=== PATIENT | male | born 1990 | race Caucasian/White ===

== ENCOUNTER 2021-05-31 10:53 | Emergency (ER) | payer OTHER, SELFPAY ==
[2021-05-31 10:55] VITALS: BP 119/79; PULSE 71; RESP 21; TEMP 37; O2SAT 98; BMI 21.9
--- NOTE | 2021-05-31 10:58 | XR_ITS ---
PROCEDURE: XR HAND LT MIN 3V CLINICAL INDICATION: thumb injury COMPARISON: No exams were available for comparison FINDINGS: There is an ill-defined lucency transverse in nature at the proximal aspect of the distal phalanx of the thumb. This could be related to a nondisplaced fracture however is not visualized on the remaining images. Does the patient have a laceration at this area? Osteoarthritic changes are present at the scapho trapezium joint Other findings:None. IMPRESSION: Possible nondisplaced fracture proximal aspect of the distal phalanx of the thumb. Please correlate as the patient's area of pain and tenderness. Follow-up exam in 7-10 days may provide further evaluation. Dictated by: Humble Powell MD 05/31/2021 11:16 Humble Powell MD in [place] 05/31/2021 11:16
--- NOTE | 2021-05-31 11:22 | HMH.EDUTC ---
[facility] [place] Impression: Fracture of thumb, left, closed Qualifiers: Encounter type: initial encounter Phalanx: distal Fracture alignment: nondisplaced Qualified Code(s): S62.525A - Nondisplaced fracture of distal phalanx of left thumb, initial encounter for closed fracture Disposition: Home, Self-Care Condition on Discharge: Good Instructions: Finger Fracture, DI for Finger Fracture Additional Instructions: Rest the extremity, apply ice for 15 minutes as tolerated three or four times per day, Elevate the extremity as tolerated while you are resting. Wear the splint. If your thumb swells and it gets too tight then please unwrap the top layer (jefferson wrap) and wrap it back looser. RETURN HERE [facility] IF YOU HAVE ANY ISSUES OR PROBLEMS WITH THE SPLINT OR SWELLING. Try to prevent as much swelling as you can by keeping your hand elevated and applying the ice as directed. Take ibuprofen for pain. I sent in a prescription to your pharmacy. Follow up with Dr. Rangel (orthopedics). I put in a referral and called his office. They are going to call you this afternoon, but if you haven't heard from them by 4:00 pm please call them. Their phone number is . Follow up with your regular doctor. GO TO THE ER FOR ANY WORSENING SYMPTOMS Prescriptions: Ibuprofen [Ibuprofen 800mg Tablet] 800 mg PO Q8HP PRN #30 tab PRN Reason: Moderate Pain Transmission Status: Received by [id number] Referrals: Ollie Mata MD [Primary Care Provider] - Christiano Rangel MD [Staff Physician] - Forms: Work/School Release Time of Disposition: 11:35 Medical Decision Making - Medical Records Medical records reviewed: No: I reviewed the patient's medical records. - Drake Inquiry Pt receiving controlled substance: No Vital Signs: 05/31/21 10:55 05/31/21 11:41 Temperature 98.6 F 98.6 F Temperature Source Oral Pulse Rate 71 Pulse Rate [Right Brachial] 71 Respiratory Rate 21 21 Blood Pressure 119/79 Blood Pressure [Right Arm] 119/79 Blood Pressure Mean [Right Arm] 92 Blood Pressure Source [Right Arm] Automatic Cuff Blood Pressure Position [Right Arm] Sitting 02 Sat by Pulse Oximetry 98 Oxygen Delivery Method Room Air Orders (Tests/Meds): ED MEDICATIONS Discontinued Medications Generic Name Dose Route Start Last Admin Trade Name Elpidio PRN Reason Stop Dose Admin Ibuprofen 800 mg 05/31/21 11:32 05/31/21 11:34 Ibuprofen 400 Mg Tablet PO 05/31/21 11:33 800 mg ONCE ONE Administration - Radiology Data #1 Image(s): Hand Image Reviewed: Yes I reviewed the patient's radiology image, Yes I have reviewed radiologist's interpretation Preliminary Findings: Abnormal PROCEDURE: XR HAND LT MIN 3V CLINICAL INDICATION: thumb injury COMPARISON: No exams were available for comparison FINDINGS: There is an ill-defined lucency transverse in nature at the proximal aspect of the distal phalanx of the thumb. This could be related to a nondisplaced fracture however is not visualized on the remaining images. Does the patient have a laceration at this area? Osteoarthritic changes are present at the scapho trapezium joint Other findings:None. IMPRESSION: Possible nondisplaced fracture proximal aspect of the distal phalanx of the thumb. Please correlate as the patient's area of pain and tenderness. Follow-up exam in 7-10 days may provide further evaluation. Dictated by: Humble Powell MD 05/31/2021 11:16 Humble Powell MD in [place] 05/31/2021 11:16 [facility] [place] - General Stated complaint: poss broken left thumb Time Seen by Provider: 05/31/21 11:25 Mode of Arrival: Ambulatory Source of Information: Patient Limitations: No Limitations Description of Symptoms (Recalled from Triage Doc. by RN): PATIENT REPORTS HE JAMMED HIS LEFT THUMB PLAYING BASKETBALL LAST NIGHT HEENT Symptoms (Recalled from RN notes): No Resp Symptoms (Recalled from RN notes): No Skin Symp
[2021-05-31 11:41] VITALS: BP 119/79; PULSE 71; RESP 21; TEMP 37; O2SAT 98
== END 2021-05-31 11:44 | disposition home or self-care (01) ==
PROVIDERS: Emergency Provider Nurse Practitioner Family; PCP Emergency Medicine
DX: S62.525A Nondisplaced fracture of distal phalanx of left thumb, initial encounter for closed fracture (principal); W22.8XXA Striking against or struck by other objects, initial encounter; Y93.67 Activity, basketball; Y92.89 Other specified places as the place of occurrence of the external cause; F41.8 Other specified anxiety disorders; Z88.0 Allergy status to penicillin
CPT/HCPCS: 73130; 99202; G0463

== ENCOUNTER → 2021-06-11 13:33 | Outpatient (CLI) | payer OTHER, SELFPAY ==
--- NOTE | 2021-06-11 13:38 | XR_ITS ---
PROCEDURE: XR FINGER LT MIN 2V CLINICAL INDICATION: LT thumb fx COMPARISON: CR XR HAND LT MIN 3V from 05/31/2021 FINDINGS: The presence of the thumb brace limits evaluation. There is minor lucency noted at the distal phalanx on the oblique view, demonstrates minor calculus formation. Bone density is normal. IMPRESSION: Healing fracture of the base of the distal phalanx of the 1st digit. Evaluation limited due to the presence of brace. Dictated by: Meliza Rangel 06/11/2021 13:55 Meliza Rangel in [place] 06/11/2021 13:55
--- NOTE | 2021-06-11 14:09 | XR_ITS ---
PROCEDURE: REPEAT VIEW XR CLINICAL INDICATION: Follow-up fracture COMPARISON: No exams were available for comparison FINDINGS: Repeat images of the left thumb were obtained after removal of the splint. Healing fracture of the base of the distal phalanx of the left 1st digit is noted. No evidence of displacement. No evidence of dislocation. No new fractures noted. Bone density is normal. No significant soft tissue abnormality. IMPRESSION: Healing fracture of the distal phalanx of the 1st digit. Dictated by: Meliza Rangel 06/11/2021 14:33 Meliza Rangel in [place] 06/11/2021 14:33
== END ==
PROVIDERS: PCP Emergency Medicine; Visit Provider Orthopaedic Surgery
DX: S62.502A Fracture of unspecified phalanx of left thumb, initial encounter for closed fracture (principal)
CPT/HCPCS: 73140

== ENCOUNTER 2021-06-11 15:12 | Outpatient (RCR) | payer OTHER, SELFPAY | END 2021-06-11 16:00 | disposition home or self-care (01) | LOC: OT 15:12 | PROVIDERS: Visit Provider Orthopaedic Surgery | DX: S62.502A Fracture of unspecified phalanx of left thumb, initial encounter for closed fracture (principal) | CPT/HCPCS: 97763 ==

== ENCOUNTER → 2021-06-29 12:56 | Outpatient (CLI) | payer OTHER, SELFPAY ==
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
== END ==
PROVIDERS: PCP Emergency Medicine; Visit Provider Orthopaedic Surgery
DX: S66.802A Unspecified injury of other specified muscles, fascia and tendons at wrist and hand level, left hand, initial encounter (principal)
CPT/HCPCS: 73221

== ENCOUNTER 2021-07-02 11:35 | Emergency (ER) | payer OTHER, SELFPAY ==
[2021-07-02 12:00] VITALS: BP 110/56; PULSE 70; RESP 19; TEMP 36.6; O2SAT 98; BMI 21.4
--- NOTE | 2021-07-02 12:41 | HMH.EDUTC ---
[facility] [place] Clinical Impression: Nausea, vomiting, and diarrhea Disposition: Home, Self-Care Condition on Discharge: Good Instructions: Nausea and Vomiting-Adult, Ondansetron, Dicyclomine Additional Instructions: Drink extra fluids with and between meals. If you have difficulty drinking, try very small amounts of water or suck on ice chips. ? Avoid fruit juices, as these do not replace minerals and can actually increase diarrhea. ? Children and adults can use sports drinks to replenish electrolytes. Younger children and infants should use products formulated for children, like oral rehydration solutions. ? Eat food in small amounts and let your stomach recover. ? Get lots of rest. You may feel tired or weak. ? No greasy or fried foods for the next 24-48 hours BRAT diet Bananas Rice Apples and [place] ? Make sure to drink plenty of liquids ? Return if needed ? Straight to ER if any life threatening symptoms ? Zofran as prescribed ? You was given an outpatient order for diarrhea panel, please collect specimen and bring back to outpatient lab then call back to the [facility] or follow up with family doctor for results ? Follow up with family doctor in the next 48-72 hours if no improvement or any worsening of symptoms Prescriptions: Dicyclomine HCl [Bentyl 10mg capsule] 10 mg PO TID PRN #15 cap PRN Reason: Cramping Transmission Status: Pending to [facility] Ondansetron [Zofran 4mg ODT] 4 mg PO TIDP PRN #10 tab PRN Reason: Nausea Transmission Status: Pending to [id number] Referrals: Ollie Mata MD [Primary Care Provider] - As needed Forms: Work/School Release Time of Disposition: 13:02 Medical Decision Making - Drake Inquiry Pt receiving controlled substance: No Drake was queried for this patient: No Vital Signs: 07/02/21 12:00 Temperature 97.9 F Temperature Source Oral Pulse Rate [Right Brachial] 70 Respiratory Rate 19 Blood Pressure [Right Arm] 110/56 L Blood Pressure Mean [Right Arm] 74 Blood Pressure Source [Right Arm] Automatic Cuff Blood Pressure Position [Right Arm] Sitting 02 Sat by Pulse Oximetry 98 Oxygen Delivery Method Room Air Orders (Tests/Meds): ED MEDICATIONS Discontinued Medications Generic Name Dose Route Start Last Admin Trade Name Freq PRN Reason Stop Dose Admin Dicyclomine HCl 10 mg 07/02/21 12:41 07/02/21 12:48 Dicyclomine 10mg Capsule PO 07/02/21 12:42 10 mg ONCE ONE Administration Ondansetron HCl 4 mg 07/02/21 12:41 07/02/21 12:48 Ondansetron 4mg Odt SL 07/02/21 12:42 4 mg ONCE ONE Administration [facility] [place] HPI - General Stated complaint: stomache pains, diarrhea Time Seen by Provider: 07/02/21 12:41 Mode of Arrival: Ambulatory Source of Information: Patient Limitations: No Limitations Description of Symptoms (Recalled from Triage Doc. by RN): PATIENT C/O STOMACH CRAMPS, VOMITING, AND DIARRHEA SINCE THIS MORNING HEENT Symptoms (Recalled from RN notes): No Resp Symptoms (Recalled from RN notes): No Skin Symptoms (Recalled from RN notes): No MS Symptoms (Recalled from RN notes): No Functional Status (Recalled from RN notes): WNL - History of Present Illness Provider Complaint: Patient states that he woke up around 2am this morning with n/v/d States that his stomach is all upset and having some cramping like he is going to have diarrhea again so he couldnt go to work States that the diarrhea is a little better but still having nausea - Related Data Previous Rx's Medication Instructions Recorded Ibuprofen [Ibuprofen 800mg 800 mg PO Q8HP PRN #30 tab 05/31/21 Tablet] Dicyclomine HCl [Bentyl 10mg 10 mg PO TID PRN #15 cap 07/02/21 capsule] Ondansetron [Zofran 4mg ODT] 4 mg PO TIDP PRN #10 tab 07/02/21 Allergies Allergy/AdvReac Type Severity Reaction Status Date / Time methylphenidate Allergy hives Verified 06/11/21 14:31 [From Ritalin] Penicillins Allergy Verified 06/11/21 14:31
[2021-07-02 13:11] VITALS: BP 110/56; PULSE 70; RESP 19; TEMP 36.6; O2SAT 98
== END 2021-07-02 13:14 | disposition home or self-care (01) ==
PROVIDERS: Emergency Provider Nurse Practitioner; PCP Emergency Medicine
DX: R11.2 Nausea with vomiting, unspecified (principal); R19.7 Diarrhea, unspecified; F17.210 Nicotine dependence, cigarettes, uncomplicated; F41.8 Other specified anxiety disorders; Z88.0 Allergy status to penicillin
CPT/HCPCS: 99202; G0463

== ENCOUNTER → 2021-12-15 13:40 | Outpatient (CLI) | payer OTHER, SELFPAY | PROVIDERS: Visit Provider Nurse Practitioner | DX: Z20.822 Contact with and (suspected) exposure to COVID-19 (principal) | CPT/HCPCS: C9803; U0003; U0005 ==

== ENCOUNTER 2024-04-24 17:59 | Emergency (ER) | payer SELFPAY ==
[2024-04-24 18:00] VITALS: BP 142/103; PULSE 93; RESP 20; TEMP 36.8; O2SAT 98; BMI 21.6
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
[2024-04-24] MEDS: ACETAMINOPHEN 500MG TAB 1000 MG PO (18:17)
[2024-04-24] MEDS: LIDOCAINE 5% TRANSDERMAL PATCH 1 EACH TP (18:17)
[2024-04-24] MEDS: IBUPROFEN 600 MG TABLET 800 MG PO (18:17)
[2024-04-24] MEDS: METHOCARBAMOL 500MG TABLET 1000 MG PO (18:17)
--- NOTE | 2024-04-24 18:29 | PC.NURSE ---
PT RETURNED FROM CT
--- NOTE | 2024-04-24 18:54 | PC.NURSE ---
DR MEJIA AT BEDSIDE TO UPDATE PT
[2024-04-24 19:03] VITALS: BP 143/91; PULSE 93; RESP 13; TEMP 36.7
== END 2024-04-24 19:04 | disposition home or self-care (01) ==
PROVIDERS: Emergency Provider Emergency Medicine
DX: M54.59 Other low back pain (principal); V49.50XA Passenger injured in collision with unspecified motor vehicles in traffic accident, initial encounter; Y92.410 Unspecified street and highway as the place of occurrence of the external cause
CPT/HCPCS: 72131; 72192; 99284